=== PATIENT | male | born 1945 | race Caucasian/White ===

== ENCOUNTER 2017-11-02 14:12 | Inpatient (IN) | payer MEDICARE, OTHER ==
[~2017-11-02] VITALS: Ht 175.3 cm; Wt 141.1 kg
[2017-11-02] MEDS ORDERED: SODIUM CHLORIDE 0.9% 1,000 ML IV ONE ×2 (14:19→16:45)
[2017-11-02 15:08] LABS: INR 1.1 (0.9-1.15)
[2017-11-02 15:19] LABS: Alanine Aminotransferase 34 U/L (16-61); Albumin 4.6 g/dL (3.4-5.0); Alkaline Phosphatase 46 U/L (45-117); Anion Gap 15 (5-15); Aspartate Aminotransferase 32 U/L (15-37); BUN/Creatinine Ratio 12.2; Blood Alcohol < 3.0 mg/dL (0-5); Blood Urea Nitrogen 31 mg/dL (7-18); Calcium 10.5 mg/dL (8.5-10.1); Carbon Dioxide 20 mmol/L (21-32); Chloride 101 mmol/L (98-107); GFR African American 32 mL/min; GFR Non-African American 27 mL/min; Glucose 201 mg/dL (74-106); Lactic Acid w/Reflex 5.5 mmol/L (0.4-2.0); Magnesium 2.2 mg/dL (1.6-2.6); Potassium 3.9 mmol/L (3.5-5.1); Sodium 136 mmol/L (136-145); Total Protein 8.9 g/dL (6.4-8.2)
[2017-11-02 15:48] LABS: Hematocrit 40.8 % (41.0-53.0); Hemoglobin 13.9 g/dL (13.5-17.5); Mean Corpuscular Hemoglobin 33.9 pg (28.0-32.0); Mean Corpuscular Hgb Conc. 34.2 g/dL (32.0-36.0); Mean Corpuscular Volume 99.4 fL (80.0-100.0); Platelet Count (auto) 114 10^3/uL (140-450); Red Blood Cells 4.11 10^6/uL (4.5-5.90); Red Cell Distribution Width 14.7 % (11.8-14.3)
[2017-11-02 15:52] LABS: Basophils % (manual) 0 (0.0-2.0); Eosinophils % (manual) 0 (0-7)
[2017-11-02 15:53] LABS: Blast Cells 0; Promyelocytes % 0
[2017-11-02 17:16] LABS: Urine Bacteria FEW /hpf (None Seen); Urine Blood 2+ /uL (Negative); Urine Hyaline Cast FEW /lpf (0 - 2); Urine Mucus FEW (None Seen); Urine Specific Gravity 1.016 (1.001-1.035); Urine WBC 3 /hpf (0 - 3)
[2017-11-02 17:19] LABS: Band Neutrophils % (manual) 7; Lymphocytes % (manual) 10 (10.0-50.0); Metamyelocytes % 3; Monocytes % (manual) 8 (0-12); Myelocytes % 1; Reactive Lymphocytes 2
[2017-11-02 17:27] LABS: Alcohol, Urine < 3.0 mg/dL (0-5); Amphetamine Screen, Urine NEGATIVE (NEGATIVE); Barbiturate Scree,Urine NEGATIVE (NEGATIVE); Benzodiazephine Screen, Urine NEGATIVE (NEGATIVE); Cannabinoid Screen, Urine NEGATIVE (NEGATIVE); Cocaine Screen, Urine NEGATIVE (NEGATIVE); Opiate Scree,Urine NEGATIVE (NEGATIVE); Phencyclidine Screen, Urine NEGATIVE (NEGATIVE)
[2017-11-02] MEDS ORDERED: AZTREONAM 1GM INJ 1 GM in D5W 5% 50 ML IV ONE (17:30)
[2017-11-02] MEDS: SODIUM CHLORIDE 0.9% 1,000 ML IV SCH (20:45)
[2017-11-02] MEDS ORDERED: NITROGLYCERIN 0.4 MG SL TAB SL PRN (20:45)
[2017-11-02] MEDS ORDERED: ONDANSETRON HCL 4 MG/2 ML VIAL IV PRN (20:45)
[2017-11-02] MEDS ORDERED: cloNIDine HCL 0.1 MG TAB PO PRN (20:45)
[2017-11-02] MEDS ORDERED: DEXTROSE (50%) 50ML SYRG IV PRN (20:45)
[2017-11-02] MEDS ORDERED: ACETAMINOPHEN 325 MG TAB PO PRN (20:45)
[2017-11-02] MEDS ORDERED: MORPHINE SULFATE 4 MG/ML SYR/VIAL IV PRN (20:45)
[2017-11-02 22:35] VITALS: BP 150/67
[2017-11-03] MEDS: ACCU-CHEK COMFORT CURVE STRIP VI SCH ×4 (00:03→18:44)
[2017-11-03] MEDS ORDERED: GABA100C9 PO (03:07)
[2017-11-03] MEDS ORDERED: ESCI10TA53 PO (03:07)
[2017-11-03] MEDS ORDERED: MET50T PO (03:07)
[2017-11-03] MEDS ORDERED: FURO40TA4 PO (03:07)
[2017-11-03] MEDS ORDERED: ALL100T PO (03:07)
[2017-11-03] MEDS ORDERED: AML5T PO (03:07)
[2017-11-03] MEDS ORDERED: GLIM2TAB33 PO (03:07)
[2017-11-03] MEDS ORDERED: LOSA100T27 PO (03:07)
[2017-11-03] MEDS ORDERED: PERCOT PO (03:07)
[2017-11-03] MEDS ORDERED: ASP81EC PO (03:07)
[2017-11-03] MEDS ORDERED: POTA10TA51 PO (03:07)
[2017-11-03] MEDS ORDERED: COLC1TAB3 PO (03:07)
[2017-11-03 04:53] VITALS: BP 150/80
[2017-11-03] MEDS: InsuLIN REG 1unit/0.01ml Soln (100units/ml) SC SCH ×4 (05:40→18:00)
[2017-11-03 06:43] LABS: Hematocrit 37.6 % (41.0-53.0); Hemoglobin 12.7 g/dL (13.5-17.5); Mean Corpuscular Hemoglobin 33.5 pg (28.0-32.0); Mean Corpuscular Hgb Conc. 33.9 g/dL (32.0-36.0); Mean Corpuscular Volume 98.8 fL (80.0-100.0); Platelet Count (auto) 92 10^3/uL (140-450); Red Cell Distribution Width 14.2 % (11.8-14.3); White Blood Cell 6.3 10^3/uL (4.4-10.8)
[2017-11-03 07:04] LABS: Albumin 3.8 g/dL (3.4-5.0); BUN/Creatinine Ratio 15.1; Bilirubin, Total 1.1 mg/dL (0.2-1.0); Calcium 9.1 mg/dL (8.5-10.1); Total Protein 7.6 g/dL (6.4-8.2)
[2017-11-03 07:36] LABS: Basophils % (manual) 0 (0.0-2.0); Blast Cells 0; Metamyelocytes % 0; Myelocytes % 0; Promyelocytes % 0
[2017-11-03] MEDS: cefTRIAXone 1GM/10ml IVPUSH 10 ML IV SCH (09:26)
[2017-11-03] MEDS: PANTOPRAZOLE 40 MG TAB PO SCH (09:26)
[2017-11-03] MEDS ORDERED: ENOXAPARIN SOD 40 MG/0.4 ML SYRINGE SC SCH (10:00)
[2017-11-03] MEDS: SODIUM CHLORIDE 0.9% 1,000 ML IV SCH (10:37)
[2017-11-03 11:02] LABS: Band Neutrophils % (manual) 1; Eosinophils % (manual) 3 (0-7); Lymphocytes % (manual) 30 (10.0-50.0); Monocytes % (manual) 22 (0-12); Reactive Lymphocytes 4
[2017-11-03] MEDS: ASPirin 81 mg TAB PO SCH (13:09)
[2017-11-03] MEDS: METOPROLOL TARTRATE 50 MG TAB PO SCH ×2 (13:11→22:31)
[2017-11-03 20:38] LABS: Protein, Urine 157.3 mg/dL (0.0-11.9)
[2017-11-03] MEDS ORDERED: HALOPERIDOL LACTATE 5 MG/ML INJ VIAL IM PRN (21:00)
[2017-11-03 22:01] VITALS: BP 137/77
[2017-11-03] MEDS: TEMAZEPAM 15 MG CAP PO PRN (22:31)
[2017-11-04] MEDS ORDERED: diphenhdrAMINE HCL 50 MG/1 ML VL IV ONE (00:30)
[2017-11-04 04:57] VITALS: BP 153/83
[2017-11-04 07:01] LABS: Mean Corpuscular Hemoglobin 33.4 pg (28.0-32.0); Mean Corpuscular Hgb Conc. 34.1 g/dL (32.0-36.0); Platelet Count (auto) 95 10^3/uL (140-450); Red Blood Cells 3.88 10^6/uL (4.5-5.90); Red Cell Distribution Width 13.9 % (11.8-14.3); White Blood Cell 6.7 10^3/uL (4.4-10.8)
[2017-11-04 07:15] LABS: BUN/Creatinine Ratio 12.6; Calcium 8.8 mg/dL (8.5-10.1); Phosphorus 2.7 mg/dL (2.5-4.90); Potassium 3.8 mmol/L (3.5-5.1)
[2017-11-04 07:26] LABS: Basophils % (manual) 0 (0.0-2.0); Metamyelocytes % 0; Myelocytes % 0; Promyelocytes % 0
[2017-11-04 07:27] LABS: Blast Cells 0
[2017-11-04] MEDS: SODIUM CHLORIDE 0.9% 1,000 ML IV SCH (08:28)
[2017-11-04 09:00] VITALS: BP 147/79
[2017-11-04] MEDS: ALLOPURINOL 100 MG TAB PO SCH (09:12)
[2017-11-04] MEDS: ASPirin 81 mg TAB PO SCH (09:12)
[2017-11-04] MEDS: PANTOPRAZOLE 40 MG TAB PO SCH (09:12)
[2017-11-04] MEDS: cefTRIAXone 1GM/10ml IVPUSH 10 ML IV SCH (09:12)
[2017-11-04] MEDS: amLODIPine BESYLATE 5 MG TAB PO SCH (09:13)
[2017-11-04] MEDS: METOPROLOL TARTRATE 50 MG TAB PO SCH ×2 (09:13→23:03)
[2017-11-04] MEDS: ACCU-CHEK COMFORT CURVE STRIP VI SCH ×2 (11:44→17:26)
[2017-11-04] MEDS: InsuLIN REG 1unit/0.01ml Soln (100units/ml) SC SCH ×2 (11:44→17:26)
[2017-11-04 13:00] VITALS: BP 130/85
[2017-11-04 13:11] LABS: Band Neutrophils % (manual) 2; Eosinophils % (manual) 2 (0-7); Lymphocytes % (manual) 25 (10.0-50.0); Monocytes % (manual) 23 (0-12); Reactive Lymphocytes 2
[2017-11-04 22:32] VITALS: BP 141/85
[2017-11-04] MEDS: TEMAZEPAM 15 MG CAP PO PRN (23:04)
[2017-11-04] MEDS: HYDROcodone-ACET 5/325MG TAB PO PRN (23:24)
[2017-11-05 05:59] LABS: Hemoglobin 13.8 g/dL (13.5-17.5); Mean Corpuscular Hemoglobin 33.5 pg (28.0-32.0); Mean Corpuscular Hgb Conc. 33.8 g/dL (32.0-36.0); Mean Corpuscular Volume 99.2 fL (80.0-100.0); Platelet Count (auto) 92 10^3/uL (140-450); Red Blood Cells 4.13 10^6/uL (4.5-5.90); Red Cell Distribution Width 14.3 % (11.8-14.3); White Blood Cell 9.4 10^3/uL (4.4-10.8)
[2017-11-05] MEDS: ACCU-CHEK COMFORT CURVE STRIP VI SCH ×4 (06:00→17:07)
[2017-11-05] MEDS: InsuLIN REG 1unit/0.01ml Soln (100units/ml) SC SCH ×4 (06:00→17:28)
[2017-11-05 06:08] VITALS: BP 156/83
[2017-11-05 06:08] LABS: Albumin 3.8 g/dL (3.4-5.0); BUN/Creatinine Ratio 12.2; Bilirubin, Total 1.2 mg/dL (0.2-1.0); Calcium 8.8 mg/dL (8.5-10.1); Potassium 4.5 mmol/L (3.5-5.1); Total Protein 8.2 g/dL (6.4-8.2)
[2017-11-05 06:13] LABS: Band Neutrophils % (manual) 0; Basophils % (manual) 0 (0.0-2.0); Blast Cells 0; Eosinophils % (manual) 0 (0-7); Metamyelocytes % 0; Myelocytes % 0; Promyelocytes % 0; Reactive Lymphocytes 0
[2017-11-05 06:44] LABS: Lymphocytes % (manual) 24 (10.0-50.0); Monocytes % (manual) 23 (0-12)
[2017-11-05 09:00] VITALS: BP 164/93
[2017-11-05 09:05] VITALS: BP 167/86
[2017-11-05] MEDS: PANTOPRAZOLE 40 MG TAB PO SCH (09:15)
[2017-11-05] MEDS: ALLOPURINOL 100 MG TAB PO SCH (09:15)
[2017-11-05] MEDS: HYDROcodone-ACET 5/325MG TAB PO PRN ×3 (09:15→20:08)
[2017-11-05] MEDS: amLODIPine BESYLATE 5 MG TAB PO SCH ×2 (09:16→14:08)
[2017-11-05] MEDS: cefTRIAXone 1GM/10ml IVPUSH 10 ML IV SCH (09:16)
[2017-11-05] MEDS: METOPROLOL TARTRATE 50 MG TAB PO SCH ×2 (09:16→21:33)
[2017-11-05 17:28] VITALS: BP 143/75
[2017-11-05 20:00] VITALS: BP 148/83
[2017-11-05 21:30] VITALS: BP 148/83
[2017-11-05] MEDS: DOCUSATE SOD 100 MG CAP PO PRN (23:55)
[2017-11-06] MEDS: HYDROcodone-ACET 5/325MG TAB PO PRN ×2 (02:26→09:07)
[2017-11-06 05:00] VITALS: BP 143/88
[2017-11-06] MEDS: ACCU-CHEK COMFORT CURVE STRIP VI SCH ×4 (05:28→17:17)
[2017-11-06] MEDS: InsuLIN REG 1unit/0.01ml Soln (100units/ml) SC SCH ×4 (05:28→17:17)
[2017-11-06 05:54] LABS: Hematocrit 39.9 % (41.0-53.0); Hemoglobin 13.7 g/dL (13.5-17.5); Mean Corpuscular Hemoglobin 33.4 pg (28.0-32.0); Mean Corpuscular Hgb Conc. 34.2 g/dL (32.0-36.0); Mean Corpuscular Volume 97.8 fL (80.0-100.0); Platelet Count (auto) 98 10^3/uL (140-450); Red Blood Cells 4.08 10^6/uL (4.5-5.90); White Blood Cell 12.5 10^3/uL (4.4-10.8)
[2017-11-06 06:09] LABS: Basophils % (manual) 0 (0.0-2.0); Eosinophils % (manual) 0 (0-7); Metamyelocytes % 0; Myelocytes % 0
[2017-11-06 06:10] LABS: Blast Cells 0; Promyelocytes % 0; Reactive Lymphocytes 0
[2017-11-06 06:19] LABS: BUN/Creatinine Ratio 16.2; Calcium 8.9 mg/dL (8.5-10.1); Potassium 4.1 mmol/L (3.5-5.1)
[2017-11-06 06:52] LABS: Band Neutrophils % (manual) 2; Lymphocytes % (manual) 10 (10.0-50.0); Monocytes % (manual) 32 (0-12)
[2017-11-06 09:00] VITALS: BP 125/75
[2017-11-06] MEDS: cefTRIAXone 1GM/10ml IVPUSH 10 ML IV SCH (09:06)
[2017-11-06] MEDS: METOPROLOL TARTRATE 50 MG TAB PO SCH ×2 (09:06→21:50)
[2017-11-06] MEDS: PANTOPRAZOLE 40 MG TAB PO SCH (09:07)
[2017-11-06] MEDS: ALLOPURINOL 100 MG TAB PO SCH (09:07)
[2017-11-06] MEDS: amLODIPine BESYLATE 5 MG TAB PO SCH (09:08)
[2017-11-06 10:29] LABS: Folate (Folic Acid) 5.27 ng/mL (5.38-24)
[2017-11-06] MEDS: SODIUM BICARBONATE 50ML VIAL 50 ML in SOD CHL 0.45% 1,000 ML IV SCH ×2 (10:59→21:49)
[2017-11-06] MEDS ORDERED: ceFAZolin 1GM/50ML 50 ML IV ONE (11:15)
[2017-11-06 13:00] VITALS: BP 138/73
[2017-11-06 17:00] VITALS: BP 123/69
[2017-11-06] MEDS ORDERED: CYANOCOBALAMIN (B-12) 1000 MCG/1 ML VIAL IM ONE (20:15)
[2017-11-06] MEDS: ceFAZolin 1GM/50ML 50 ML IV SCH (21:50)
[2017-11-06 22:00] VITALS: BP 141/69
[2017-11-07] MEDS: ACCU-CHEK COMFORT CURVE STRIP VI SCH ×4 (00:10→18:20)
[2017-11-07] MEDS: HYDROcodone-ACET 5/325MG TAB PO PRN ×4 (03:01→21:52)
[2017-11-07 04:32] VITALS: BP 112/65
[2017-11-07] MEDS: ceFAZolin 1GM/50ML 50 ML IV SCH ×3 (05:20→21:43)
[2017-11-07] MEDS: InsuLIN REG 1unit/0.01ml Soln (100units/ml) SC SCH ×4 (05:20→18:00)
[2017-11-07] MEDS: DOCUSATE SOD 100 MG CAP PO PRN (05:23)
[2017-11-07 06:31] LABS: Hematocrit 37.3 % (41.0-53.0); Hemoglobin 12.7 g/dL (13.5-17.5); Mean Corpuscular Hgb Conc. 33.9 g/dL (32.0-36.0); Mean Corpuscular Volume 97.3 fL (80.0-100.0); Platelet Count (auto) 84 10^3/uL (140-450); Red Blood Cells 3.83 10^6/uL (4.5-5.90); Red Cell Distribution Width 13.7 % (11.8-14.3); White Blood Cell 11.6 10^3/uL (4.4-10.8)
[2017-11-07 06:42] LABS: Basophils % (manual) 0 (0.0-2.0); Blast Cells 0; Metamyelocytes % 0; Myelocytes % 0; Promyelocytes % 0; Reactive Lymphocytes 0
[2017-11-07 06:50] LABS: BUN/Creatinine Ratio 20.3; Calcium 8.5 mg/dL (8.5-10.1); Potassium 4.1 mmol/L (3.5-5.1)
[2017-11-07 07:36] LABS: Band Neutrophils % (manual) 5; Eosinophils % (manual) 3 (0-7); Lymphocytes % (manual) 20 (10.0-50.0); Monocytes % (manual) 10 (0-12)
[2017-11-07 08:00] VITALS: BP 135/73
[2017-11-07] MEDS: SODIUM BICARBONATE 50ML VIAL 50 ML in SOD CHL 0.45% 1,000 ML IV SCH ×2 (08:00→12:09)
[2017-11-07] MEDS: FOLIC ACID 1 MG in D5W 5% 50 ML IV SCH ×2 (10:00→12:29)
[2017-11-07] MEDS: PANTOPRAZOLE 40 MG TAB PO SCH (10:16)
[2017-11-07] MEDS: ALLOPURINOL 100 MG TAB PO SCH (10:16)
[2017-11-07] MEDS: CYANOCOBALAMIN 500 MCG TAB PO SCH (10:16)
[2017-11-07] MEDS: amLODIPine BESYLATE 5 MG TAB PO SCH (10:17)
[2017-11-07] MEDS: METOPROLOL TARTRATE 50 MG TAB PO SCH ×2 (10:17→21:44)
[2017-11-07 13:00] VITALS: BP 145/66
[2017-11-07 16:30] VITALS: BP 126/78
[2017-11-07 21:48] VITALS: BP 122/71
[2017-11-08] MEDS: ACCU-CHEK COMFORT CURVE STRIP VI SCH ×3 (00:17→12:00)
[2017-11-08] MEDS: SODIUM BICARBONATE 50ML VIAL 50 ML in SOD CHL 0.45% 1,000 ML IV SCH (00:53)
[2017-11-08 05:00] VITALS: BP 100/47
[2017-11-08] MEDS: ceFAZolin 1GM/50ML 50 ML IV SCH (05:31)
[2017-11-08] MEDS: InsuLIN REG 1unit/0.01ml Soln (100units/ml) SC SCH ×3 (05:35→12:20)
[2017-11-08] MEDS: DOCUSATE SOD 100 MG CAP PO PRN (06:09)
[2017-11-08 06:32] LABS: Hematocrit 36.7 % (41.0-53.0); Hemoglobin 12.6 g/dL (13.5-17.5); Mean Corpuscular Hemoglobin 33.4 pg (28.0-32.0); Mean Corpuscular Hgb Conc. 34.2 g/dL (32.0-36.0); Mean Corpuscular Volume 97.7 fL (80.0-100.0); Platelet Count (auto) 74 10^3/uL (140-450); Red Blood Cells 3.76 10^6/uL (4.5-5.90); Red Cell Distribution Width 13.5 % (11.8-14.3); White Blood Cell 8.8 10^3/uL (4.4-10.8)
[2017-11-08 06:49] LABS: Band Neutrophils % (manual) 0; Eosinophils % (manual) 0 (0-7)
[2017-11-08 06:50] LABS: Basophils % (manual) 0 (0.0-2.0); Blast Cells 0; Metamyelocytes % 0; Myelocytes % 0; Promyelocytes % 0; Reactive Lymphocytes 0
[2017-11-08 06:55] LABS: Calcium 8.8 mg/dL (8.5-10.1); Potassium 4.1 mmol/L (3.5-5.1)
[2017-11-08 06:59] LABS: BUN/Creatinine Ratio 24.5
[2017-11-08 08:26] LABS: Lymphocytes % (manual) 30 (10.0-50.0); Monocytes % (manual) 5 (0-12)
[2017-11-08 08:50] VITALS: BP 103/51
[2017-11-08] MEDS: METOPROLOL TARTRATE 50 MG TAB PO SCH (10:00)
[2017-11-08] MEDS ORDERED: BISACODYL 5 MG EC TAB PO ONE (10:45)
[2017-11-08] MEDS ORDERED: LACTULOSE 20Gm/30ML SOLN PO ONE (10:45)
[2017-11-08] MEDS: HYDROcodone-ACET 5/325MG TAB PO PRN (11:15)
[2017-11-08] MEDS: PANTOPRAZOLE 40 MG TAB PO SCH (11:59)
[2017-11-08] MEDS: ALLOPURINOL 100 MG TAB PO SCH (12:00)
[2017-11-08] MEDS: CYANOCOBALAMIN 500 MCG TAB PO SCH (12:00)
[2017-11-08 12:14] VITALS: BP 140/60
== END 2017-11-08 14:28 | DRG 91 ==
LOC: ER 14:12 → TELE 14:13 → TELE-CENTR 23:21 → CENTRAL 11-06 12:16
PROVIDERS: ADMIT Nurse Practitioner; ATTEND Internal Medicine
DX: G92 Toxic encephalopathy (principal); N17.0 Acute kidney failure with tubular necrosis; E11.21 Type 2 diabetes mellitus with diabetic nephropathy; E87.2 Acidosis; D69.6 Thrombocytopenia, unspecified; E11.22 Type 2 diabetes mellitus with diabetic chronic kidney disease; E66.01 Morbid (severe) obesity due to excess calories; I13.0 Hypertensive heart and chronic kidney disease with heart failure and stage 1 through stage 4 chronic kidney disease, or unspecified chronic kidney disease; I50.32 Chronic diastolic (congestive) heart failure; N39.0 Urinary tract infection, site not specified; N13.8 Other obstructive and reflux uropathy; D32.9 Benign neoplasm of meninges, unspecified; E83.52 Hypercalcemia; E53.8 Deficiency of other specified B group vitamins; S31.109A Unspecified open wound of abdominal wall, unspecified quadrant without penetration into peritoneal cavity, initial encounter; X58.XXXA Exposure to other specified factors, initial encounter; E78.5 Hyperlipidemia, unspecified; E86.0 Dehydration; F17.200 Nicotine dependence, unspecified, uncomplicated; I67.2 Cerebral atherosclerosis; M10.9 Gout, unspecified; M19.90 Unspecified osteoarthritis, unspecified site; N18.9 Chronic kidney disease, unspecified; N40.1 Benign prostatic hyperplasia with lower urinary tract symptoms; R29.6 Repeated falls; Z82.3 Family history of stroke; Z82.49 Family history of ischemic heart disease and other diseases of the circulatory system; Z82.5 Family history of asthma and other chronic lower respiratory diseases; Z79.82 Long term (current) use of aspirin; Y93.89 Activity, other specified; Y92.89 Other specified places as the place of occurrence of the external cause
CPT/HCPCS: 36415; 70450; 71045; 76775; 80048; 80053; 80307; 80320; 81001; 82306; 82570; 82607; 82746; 82962; 83036; 83605; 83735; 83970; 84100; 84156; 84300; 84443; 84484; 85007; 85027; 85610; 85730; 87040; 87077; 87086; 87186; 87205; 87804; 93005; 93306; 94761; 95819; 96361; 96372; 96374; 97163; J0690; J1815; J7060